=== PATIENT | male | born 1975 | race Hispanic/Latino ===

== ENCOUNTER → 2019-06-10 | Day surgery (SDC) | payer BC ==
[2019-06-09 15:52] LABS: BASOPHILS # (AUTO) 0.1 (0.0-0.1); BASOPHILS % 0.8 % (0.0-1.0); EOSINOPHILS # (AUTO) 0.5 (0.0-0.4); EOSINOPHILS % 4.5 % (0.0-6.0); HEMATOCRIT 52.4 % (38.2-49.6); LYMPHOCYTES # (AUTO) 3.6 (1.0-3.2); LYMPHOCYTES % 31.1 % (18.0-39.1); MEAN CORPUSCULAR HEMOGLOBIN 28.2 pg (28-32); MEAN CORPUSCULAR HGB CONC 32.4 g/dL (31-35); MEAN CORPUSCULAR VOLUME 86.9 fL (81-99); MONOCYTES # (AUTO) 1.2 (0.2-0.8); MONOCYTES % 9.9 % (4.4-11.3); NEUTROPHILS # (AUTO) 6.2 (2.1-6.9); NEUTROPHILS % 53.2 % (38.7-80.0); PLATELET COUNT 263 x10e3/uL (140-360); RED BLOOD COUNT 6.03 x10e6/uL (4.3-5.7); RED CELL DISTRIBUTION WIDTH 12.8 % (11.7-14.4)
[2019-06-09 16:08] LABS: ANION GAP 12.6 mmol/L (8-16); BLOOD UREA NITROGEN 14 mg/dL (7-26); BUN/CREATININE RATIO 19 (6-25); CALCIUM 9.9 mg/dL (8.4-10.2); CARBON DIOXIDE 28 mmol/L (22-29); CHLORIDE 102 mmol/L (98-107); CREATININE, SERUM 0.72 mg/dL (0.72-1.25); EST GLOMERULAR FILTRATION RATE > 60 ML/MIN (60-); GLUCOSE 115 mg/dL (74-118); POTASSIUM 3.6 mmol/L (3.5-5.1); SODIUM 139 mmol/L (136-145)
[~2019-06-10] MED LIST: ACETAMINOPHEN 1000 MG/100 ML 100 ML IV ONE; ACETAMINOPHEN 1000 MG/100 ML IV ONE; ADVIL200 M1 PO; BACITRACIN 50,000 UNIT VIAL ONE; BUPIVACAINE 0.5%/EPI 30 ML SDV INJ ONE; DESFLURANE 240 ML BTL INH ONE; DEXAMETHASONE SOD PHOS INJ 4 MG/ML VIAL ONE; FENTANYL CITRATE/PF 100MCG/2 ML INJ ONE; KETOROLAC TROMETHAMINE 30 MG/ML VIAL ONE; LIDOCAINE 1% W/EPINEPHRINE 20 ML VIAL ONE; LIDOCAINE HCL 2% LOCAL INJ 5 ML SDV VIAL INJ ONE; MIDAZOLAM HCL 2 MG/2 ML VIAL ONE; ONDANSETRON HCL INJ 2MG/ML 2ML 2 MG/ML VIAL ONE; PHENYLEPHRINE HCL 1% 10 MG/ML VIAL ONE; PROPOFOL IV EMULSION 10 MG/ML 20 ML VIAL ONE; ROCURONIUM BROMIDE 10 MG/ML 5ML VIAL ONE; SUGAMMADEX SODIUM 200 MG/2 ML VIAL IV ONE
--- NOTE | 2019-06-10 13:24 | Operative Report ---
DATE OF PROCEDURE: 06/10/2019 SURGEON: Avinash Hayden MD PREOPERATIVE DIAGNOSES: Morbid obesity, super obese and right inguinal hernia, very symptomatic. POSTOPERATIVE DIAGNOSES: Morbid obesity, super obese and right inguinal hernia, very symptomatic. PROCEDURE PERFORMED: Repair of right inguinal hernia with Ultrapro Hernia System, oval type. BIAZZI NITRATOR OPERATOR: JAVIER Cervantes. ESTIMATED BLOOD LOSS: Minimal. DRAINS: None. COMPLICATIONS: None. INDICATIONS AND FINDINGS: The patient is an obese male with a BMI of 50, admitted for repair of very symptomatic right inguinal hernia. INTRAOPERATIVE FINDINGS: Right inguinal hernia with bowel contents in it that were reduced and there was no evidence of strangulation. The Ultrapro Hernia System, oval type was placed in the preperitoneal space. DESCRIPTION OF PROCEDURE: With the patient lying on the operative table in the supine position, after administration of general anesthesia, he was prepped and draped for repair of right inguinal hernia. Preemptive anesthesia was given with 0.5% Marcaine with epinephrine as an incisional block. An incision was made across the groin and then deepened through the skin and subcutaneous tissue, which was very abundant until we identified in the depths of the operative field the external oblique aponeurosis. This was incised transecting the external inguinal ring. Medial and lateral leaves were developed and the cord was then mobilized at the level of the pubic tubercle. It contained what appeared to be bowel and/or omentum, which reduced itself as we mobilized the cord. Then, we explored the cord, opened the sac, highly ligated the sac twice with 0 Vicryl and then we went ahead and performed the repair. We incised the transversalis fascia and then deployed the Ultrapro Hernia System, oval type in the preperitoneal space. Then, we slid the mesh and secured the mesh to the local tissues using mainly 0 Ethibond suture. Due to the large size of the patient, we also placed some 2-0 Ethibond sutures to secure the mesh. The mesh appeared to be strong. The repair appeared to be good. We then went ahead and irrigated the operative field. There was no bleeding. We infiltrated the field with a combination now of 0.5% Marcaine with epinephrine and 1% Xylocaine with epinephrine and then we closed the wound in layers using 2-0 Vicryl for whatever was left of the external oblique aponeurosis to recreate another layer. Then, we closed the soft tissues in 2 layers using 0 chromic and several 0 Vicryl stitches were placed in the more superficial plane. The skin was closed using a combination of 2-0 silk and maria elena. Sterile dressing was applied. The patient tolerated the procedure well, was taken to recovery room in stable condition. The family was informed of the intraoperative findings. I discussed with the his super morbid obesity and advised her and I will be advising him to seek bariatric treatment for his super morbid obesity as soon as it is feasible after his postop. MD NILO Camejo/EDIN /[id number]
[2019-06-10 13:45] VITALS: BP 125/72
== END | disposition home or self-care (01) ==
LOC: OR 05:18
PROVIDERS: ATTEND Surgery
DX: K40.90 Unilateral inguinal hernia, without obstruction or gangrene, not specified as recurrent (principal); E66.01 Morbid (severe) obesity due to excess calories; R05 Cough; Z01.810 Encounter for preprocedural cardiovascular examination; Z01.812 Encounter for preprocedural laboratory examination; Z68.43 Body mass index [BMI] 50.0-59.9, adult
CPT/HCPCS: 36415; 49505; 80048; 85025; 88302; 93005; C1781; J0131; J1885; J2250; J2405; J3010